=== PATIENT | female | born 1955 | race Caucasian/White ===

== ENCOUNTER → 2018-04-20 | Outpatient (CLI) | payer BC ==
--- NOTE | 2018-04-21 07:32 | BD ---
EXAMINATION TYPE: Axial Bone Density DATE OF EXAM: 04/20/2018 COMPARISON: 09.08.2010 DEXA bone scan. CLINICAL HISTORY: 62 YR OLD FEMALE.....ICD-10 CODE: Z13.820 OSTEOPOROSIS SCREENING Height: 60.3 Weight: 174 FRAX RISK QUESTIONS: NONE TO NOTE HERE RISK FACTORS HISTORY OF: Family History of Osteoporosis: YES, HER MOTHER, WITH BROKEN HIP Active: YES Diet low in dairy products/other sources of calcium: NO Postmenopausal woman: YES AT 53 YRS Take estrogen and/or progesterone medications: BCP IN PAST FOR 16 YRS MEDICATIONS: Thyroid Medications: YES, L-THYROXINE, 18 YRS Additional Medications: ZOLOFT, CALCIUM WITH D, STATINS FOR CHOLESTEROL, SINGULAIR, FLONASE, XYZAL Additional History: HX OF RADIATION, GRAVES DISEASE, EXAM MEASUREMENTS: Bone mineral densitometry was performed using the [employer]. Bone mineral density as measured about the Lumbar spine is: ----- L1-L4(G/cm2): 0.967 T Score Values are as follows: ----- L1: -2.1 ----- L2: -1.8 ----- L3: -1.5 ----- L4: -2.0 ----- L1-L4: -1.8 Bone mineral density has: Decreased -9.1% since study of: 09.08.2010 Bone mineral density about the R hip (g/cm2): 1.030 Bone mineral density about the L hip (g/cm2): 0.943 T Score values are as follows: -----R Neck: -0.9 -----L Neck: -1.4 -----R Total: 0.2 -----L Total: -0.5 Bone mineral density has: Decreased -5.6% since study of: 09.08.2010 FRAX%s: THERE IS A 10.7% CHANCE FOR A MAJOR OSTEOPOROTIC FX AND A 0.9% FOR HIP FX......PROBABILITY OF FX IN 10 YRS TIME IMPRESSION: Osteopenia (T Score between -2.5 and -1) overall in the low back is now present. Bone density decreas ed or diminished from prior. There is slightly increased risk of fracture and the patient may be considered for treatment. Re-Screen 2-5 years. NOTE: T-SCORE=SD OF THE YOUNG ADULT MEAN.
--- NOTE | 2018-04-25 13:46 | MM ---
Reason for exam: screening (asymptomatic). Last mammogram was performed 6 years and 8 months ago. History: Patient is postmenopausal and has history of high-risk lesion on a previous biopsy at age 54. Family history of breast cancer in mother at age 73. Benign right breast needle localzation of the right breast, June 19, 2010. High risk right breast US guided needle local of the right breast, October 13, 2009. Benign right US cyst aspiration of the right breast, September 17, 2009. Benign cyst aspiration of the right breast, December 02, 2003. Benign excisional biopsy of the right breast, 2001. Took hormonal contraceptives for 16 years. Physical Findings: A clinical breast exam by your physician is recommended on an annual basis and results should be correlated with mammographic findings. MG 3D Screening Mammo W/Cad Bilateral CC and MLO view(s) were taken. Prior study comparison: August 30, 2011, CAD bilateral diagnostic mammogram. May 12, 2010, right breast diagnostic digital macho. The breast tissue is heterogeneously dense. This may lower the sensitivity of mammography. Stable benign calcifications. There is no discrete abnormality. No significant changes when compared with prior studies. ASSESSMENT: Benign, BI-RAD 2 RECOMMENDATION: Routine screening mammogram of both breasts in 1 year.
== END | disposition home or self-care (01) ==
LOC: RADMAMWWP 15:21
PROVIDERS: ATTEND Family Medicine
DX: Z12.31 Encounter for screening mammogram for malignant neoplasm of breast (principal); Z13.820 Encounter for screening for osteoporosis; M85.88 Other specified disorders of bone density and structure, other site
CPT/HCPCS: 77063; 77067; 77080